=== PATIENT | male | born 1965 | race Caucasian/White ===

== ENCOUNTER 2020-12-24 12:18 | Emergency (ER) | payer OTHER ==
[2020-12-24 12:31] VITALS: BP 138/83; PULSE 117; TEMP 98.7; BMI 21.7
[2020-12-24] MEDS ORDERED: KETOROLAC TROMETHAMINE 30 MG/1 ML VIAL IVPUSH ONE (13:06)
[2020-12-24] MEDS ORDERED: KETOROLAC TROMETHAMINE 30 MG/1 ML VIAL ONE (13:16)
[2020-12-24 13:32] LABS: BASO % 0.9 % (0-2.0); EOS % 1.3 % (0-4.5); HEMATOCRIT 49.4 % (35.4-49); HEMOGLOBIN 17.2 GM/dL (11.7-16.9); MCH 34.8 pg (25.7-33.7); MCHC 34.9 g/dl (32.0-35.9); MEAN CELL VOLUME 99.7 fl (80-96); MEAN PLT VOLUME 7.6 fl (7.5-11.1); MONO % 9.7 % (3.8-10.2); NEUT % 67.1 % (42.8-82.8); PLATELET COUNT 299 K/MM3 (134-434); RBC 4.95 M/mm3 (4.00-5.60); RDW 13.2 % (11.9-15.9); WHITE BLOOD COUNT 7.8 K/mm3 (4.0-10.0)
[2020-12-24 13:53] LABS: POTASSIUM 4.7 mmol/L (3.5-5.1)
[2020-12-24 13:57] LABS: ALBUMIN 4.2 g/dl (3.4-5.0); BLOOD UREA NITROGEN 9.6 mg/dL (7-18); CALCIUM 9.6 mg/dL (8.5-10.1)
[2020-12-24 14:01] LABS: CREATININE 0.9 mg/dL (0.55-1.3)
[2020-12-24 14:02] LABS: TOT PROT 7.8 g/dl (6.4-8.2)
[2020-12-24 15:12] LABS: URINE APPEARANCE CLEAR; URINE BILIRUBIN NEGATIVE (NEGATIVE); URINE COLOR DK YELLOW; URINE GLUCOSE (UA) NEGATIVE (NEGATIVE); URINE KETONE TRACE (NEGATIVE); URINE LEUK ESTERASE NEGATIVE (NEGATIVE); URINE NITRITE NEGATIVE (NEGATIVE); URINE PROTEIN NEGATIVE (NEGATIVE)
[2020-12-24] MEDS ORDERED: SODIUM CHLORIDE 0.9% 500 ML INFUS.BAG IV ONE (15:50)
[2020-12-24] MEDS ORDERED: DICYCLOMINE HCL 10 MG/5 ML PO ONE (15:51)
[2020-12-24] MEDS ORDERED: DICYCLOMINE HCL 10 MG CAPSULE ONE (16:13)
== END 2020-12-24 17:34 | disposition home or self-care (01) ==
LOC: JER 12:18
PROC: 3E0333Z Introduction of Anti-inflammatory into Peripheral Vein, Percutaneous Approach (ICD-10-PCS; principal; 2020-12-24)
DX: R10.30 Lower abdominal pain, unspecified (principal)
CPT/HCPCS: 36415; 74176-TC; 80053; 81003; 82140; 83690; 85025; 93005; 93010; 99285-25

== ENCOUNTER 2023-06-07 15:08 | Inpatient (IN) | payer OTHER ==
[2023-06-07] MEDS ORDERED: SODIUM CHLORIDE 0.9% 500 ML INFUS.BAG IV ONE (16:01)
[2023-06-07] MEDS ORDERED: ACETAMINOPHEN 1000 MG/100 ML BAG IVPB ONE (16:01)
[2023-06-07] MEDS ORDERED: METOCLOPRAMIDE HCL INJECTION 10 MG/2 ML VIAL IVPUSH ONE (16:01)
[2023-06-07] MEDS ORDERED: METOCLOPRAMIDE HCL INJECTION 10 MG/2 ML VIAL IVPB ONE (16:04)
[2023-06-07] MEDS ORDERED: ACETAMINOPHEN INJECTION 100 ML IVPB ONE (16:13)
[2023-06-07] MEDS ORDERED: METOCLOPRAMIDE HCL INJECTION 10 MG/2 ML VIAL ONE (16:13)
[2023-06-07 16:57] LABS: BASO % 0.6 % (0-2.0); EOS % 1.2 % (0-4.5); HEMATOCRIT 45.5 % (35.4-49); HEMOGLOBIN 15.4 GM/dL (11.7-16.9); LYMPH % 15.7 % (8-40); MCHC 33.7 g/dl (32.0-35.9); MEAN CELL VOLUME 97.9 fl (80-96); MEAN PLT VOLUME 8.1 fl (7.5-11.1); NEUT % 73.5 % (42.8-82.8); PLATELET COUNT 318 10^3/uL (134-434); RBC 4.65 M/mm3 (4.00-5.60); WHITE BLOOD COUNT 9.6 K/mm3 (4.0-10.0)
[2023-06-07 17:12] LABS: POTASSIUM 4.2 mmol/L (3.5-5.1)
[2023-06-07 17:15] LABS: CALCIUM 9.3 mg/dL (8.5-10.1)
[2023-06-07 17:16] LABS: ALBUMIN 3.8 g/dl (3.4-5.0); BLOOD UREA NITROGEN 13.1 mg/dL (7-18)
[2023-06-07 17:19] LABS: CREATININE 0.8 mg/dL (0.55-1.3)
[2023-06-07 17:21] LABS: BILIRUBIN,TOTAL 0.5 mg/dL (0.2-1); TOT PROT 6.8 g/dl (6.4-8.2)
[2023-06-07] MEDS ORDERED: PANTOPRAZOLE 40 MG TABLET PO ONE ×2 (19:31→19:57)
[2023-06-07] MEDS ORDERED: DEXAMETHASONE SOD PHOSPHATE 10 MG/1 ML VIAL IVPUSH ONE (19:31)
[2023-06-07] MEDS ORDERED: DEXAMETHASONE SOD PHOSPHATE 10 MG/1 ML VIAL ONE (19:58)
[2023-06-07 20:47] LABS: INR 0.95 (0.83-1.09)
[2023-06-07 20:49] LABS: ACTIVATED PTT 31.8 SECONDS (25.2-36.5)
[2023-06-07] MEDS: NICOTINE 21 MG/24 HOURS TOPICAL PATCH TD SCH (22:37)
[2023-06-07] MEDS ORDERED: DOCUSATE SODIUM 100 MG CAPSULE (FP) PO PRN (23:05)
[2023-06-07] MEDS ORDERED: ACETAMINOPHEN 1000 MG/100 ML BAG IVPB PRN (23:09)
[2023-06-08 01:29] LABS: BASO % 0.2 % (0-2.0); EOS % 0.1 % (0-4.5); HEMATOCRIT 43.4 % (35.4-49); HEMOGLOBIN 15.1 GM/dL (11.7-16.9); LYMPH % 7.2 % (8-40); MCH 33.2 pg (25.7-33.7); MCHC 34.8 g/dl (32.0-35.9); MEAN CELL VOLUME 95.4 fl (80-96); MEAN PLT VOLUME 7.6 fl (7.5-11.1); MONO % 1.1 % (3.8-10.2); NEUT % 91.4 % (42.8-82.8); PLATELET COUNT 305 10^3/uL (134-434); RBC 4.55 M/mm3 (4.00-5.60); RDW 13.1 % (11.9-15.9); WHITE BLOOD COUNT 10.3 K/mm3 (4.0-10.0)
[2023-06-08 02:47] LABS: ANISOCYTOSIS 2+; MACROCYTOSIS 0; OVALOCYTE 2+; TEAR DROP CELLS 1+
[2023-06-08 08:04] LABS: POTASSIUM 4.4 mmol/L (3.5-5.1)
[2023-06-08 08:07] LABS: CALCIUM 9.2 mg/dL (8.5-10.1)
[2023-06-08] MEDS ORDERED: ALBUTEROL SO4 HFA INHALER IH PRN (08:07)
[2023-06-08 08:08] LABS: BLOOD UREA NITROGEN 15.4 mg/dL (7-18); MAGNESIUM 1.8 mg/dL (1.8-2.4)
[2023-06-08 08:11] LABS: CREATININE 0.8 mg/dL (0.55-1.3); PHOSPHOROUS 2.5 mg/dL (2.5-4.9)
[2023-06-08] MEDS: PANTOPRAZOLE 40 MG TABLET PO SCH (09:51)
[2023-06-08] MEDS: NICOTINE 21 MG/24 HOURS TOPICAL PATCH TD SCH (09:51)
[2023-06-08] MEDS: DEXAMETHASONE SOD PHOSPHATE 4 MG/1 ML VIAL IVPUSH SCH ×3 (09:51→22:21)
[2023-06-08] MEDS ORDERED: ACETAMINOPHEN 325 MG TABLET (FP) PO PRN (23:05)
[2023-06-09] MEDS: DEXAMETHASONE SOD PHOSPHATE 4 MG/1 ML VIAL IVPUSH SCH ×4 (04:00→21:29)
[2023-06-09] MEDS: PANTOPRAZOLE 40 MG TABLET PO SCH (09:04)
[2023-06-09] MEDS: NICOTINE 21 MG/24 HOURS TOPICAL PATCH TD SCH (09:04)
[2023-06-10] MEDS: DEXAMETHASONE SOD PHOSPHATE 4 MG/1 ML VIAL IVPUSH SCH ×4 (03:44→21:50)
[2023-06-10] MEDS: NICOTINE 21 MG/24 HOURS TOPICAL PATCH TD SCH (09:39)
[2023-06-10] MEDS: PANTOPRAZOLE 40 MG TABLET PO SCH (09:39)
[2023-06-10 19:12] VITALS: BMI 19.2
[2023-06-11] MEDS: DEXAMETHASONE SOD PHOSPHATE 4 MG/1 ML VIAL IVPUSH SCH ×2 (02:54→09:06)
[2023-06-11 06:00] VITALS: BP 105/65; TEMP 97.8
[2023-06-11] MEDS: NICOTINE 21 MG/24 HOURS TOPICAL PATCH TD SCH (09:06)
[2023-06-11] MEDS: PANTOPRAZOLE 40 MG TABLET PO SCH (09:06)
[2023-06-11 10:59] VITALS: PULSE 79; RESP 20
== END 2023-06-11 13:38 | disposition home or self-care (01) | DRG 41 ==
LOC: JER 15:08 → JERBED 20:17 → J4W 06-08 05:18
PROVIDERS: ADMIT Internal Medicine; ATTEND Family Medicine
DX: C79.31 Secondary malignant neoplasm of brain (principal); G93.5 Compression of brain; C34.91 Malignant neoplasm of unspecified part of right bronchus or lung; G93.6 Cerebral edema; J44.9 Chronic obstructive pulmonary disease, unspecified; F17.210 Nicotine dependence, cigarettes, uncomplicated; R51.9 Headache, unspecified
CPT/HCPCS: 36415; 70450-TC; 70553-TC; 71270-TC; 74178-TC; 80048; 80053; 83735; 84100; 85025; 85610; 85730; 86850; 86900; 86901; 93005; 93010; 99285-25; A9579; J1100; Q9967

== ENCOUNTER 2023-08-12 14:12 | Inpatient (IN) | payer OTHER ==
[2023-08-12] MEDS ORDERED: SODIUM CHLORIDE 0.9% 500 ML INFUS.BAG IV ONE (15:23)
[2023-08-12] MEDS ORDERED: levETIRAcetam 500 MG/5 ML INJECTION VIAL IVPB ONE ×2 (15:33→16:03)
[2023-08-12] MEDS ORDERED: PANTOPRAZOLE SODIUM 40 MG VIAL IVPUSH ONE (15:36)
[2023-08-12] MEDS ORDERED: ONDANSETRON 4 MG/2 ML VIAL IVPUSH ONE (15:36)
[2023-08-12] MEDS ORDERED: ONDANSETRON 4 MG/2 ML VIAL ONE (16:03)
[2023-08-12] MEDS ORDERED: PANTOPRAZOLE SODIUM 40 MG VIAL ONE (16:03)
[2023-08-12 16:07] LABS: VENOUS BASE EXCESS 5.1 mmol/L (-2-2); VENOUS O2 SATURATION 63.7 % (70-80); VENOUS PCO2 48.6 mmHg (38-52); VENOUS PH 7.421 (7.310-7.410)
[2023-08-12 16:09] LABS: INR 0.97 (0.83-1.09); PROTHROMBIN TIME (PATIENT) 11.3 SEC (9.7-13.0)
[2023-08-12 16:22] LABS: CHLORIDE 98 mmol/L (98-107); SODIUM 137 mmol/L (136-145)
[2023-08-12 16:24] LABS: ALBUMIN 3.5 g/dl (3.4-5.0); ANION GAP 9 MMOL/L (8-16); BLOOD UREA NITROGEN 27.6 mg/dL (7-18); CALCIUM 9.8 mg/dL (8.5-10.1); CO2 30 mmol/L (21-32); GLUCOSE,RANDOM 144 mg/dL (74-106)
[2023-08-12 16:28] LABS: CREATININE 0.7 mg/dL (0.55-1.3); SGOT/AST 11 U/L (15-37); SGPT/ALT 41 U/L (13-61)
[2023-08-12 16:30] LABS: BILIRUBIN,TOTAL 1.1 mg/dL (0.2-1); TOT PROT 7.1 g/dl (6.4-8.2)
[2023-08-12 16:31] LABS: ALK PHOS 113 U/L (45-117)
[2023-08-12 16:34] LABS: BASO % 0.1 % (0-2.0); EOS % 0.1 % (0-4.5); HEMATOCRIT 45.3 % (35.4-49); HEMOGLOBIN 15.6 GM/dL (11.7-16.9); LYMPH % 8.5 % (8-40); MCH 32.1 pg (25.7-33.7); MCHC 34.5 g/dl (32.0-35.9); MEAN CELL VOLUME 93.2 fl (80-96); MEAN PLT VOLUME 6.4 fl (7.5-11.1); MONO % 5.9 % (3.8-10.2); NEUT % 85.4 % (42.8-82.8); PLATELET COUNT 529 10^3/uL (134-434); RBC 4.86 M/mm3 (4.00-5.60); RDW 14.2 % (11.9-15.9); WHITE BLOOD COUNT 19.7 K/mm3 (4.0-10.0)
[2023-08-12] MEDS ORDERED: MANNITOL 25% 12.5 GM/50 ML VIAL IVPB ONE (18:30)
[2023-08-12] MEDS ORDERED: MANNITOL IVPB ONE (19:00)
[2023-08-12] MEDS: PANTOPRAZOLE SODIUM 80 MG in SODIUM CHLORIDE 100 ML IVPB SCH (19:41)
[2023-08-12 20:06] LABS: URINE APPEARANCE CLEAR; URINE BILIRUBIN NEGATIVE (NEGATIVE); URINE COLOR YELLOW; URINE GLUCOSE (UA) NEGATIVE (NEGATIVE); URINE KETONE NEGATIVE (NEGATIVE); URINE LEUK ESTERASE NEGATIVE (NEGATIVE); URINE NITRITE NEGATIVE (NEGATIVE); URINE PROTEIN NEGATIVE (NEGATIVE); URINE UROBILINOGEN 0.2 mg/dL (0.2-1.0)
[2023-08-12] MEDS ORDERED: ONDANSETRON 4 MG/2 ML VIAL IVPUSH PRN (20:30)
[2023-08-12 21:16] LABS: BASO % 0.2 % (0-2.0); EOS % 0.2 % (0-4.5); HEMATOCRIT 40.3 % (35.4-49); HEMOGLOBIN 14.3 GM/dL (11.7-16.9); LYMPH % 11.3 % (8-40); MCH 32.6 pg (25.7-33.7); MCHC 35.5 g/dl (32.0-35.9); MEAN CELL VOLUME 91.8 fl (80-96); MEAN PLT VOLUME 6.2 fl (7.5-11.1); MONO % 6.2 % (3.8-10.2); NEUT % 82.1 % (42.8-82.8); PLATELET COUNT 483 10^3/uL (134-434); RBC 4.39 M/mm3 (4.00-5.60); RDW 14.7 % (11.9-15.9); WHITE BLOOD COUNT 16.9 K/mm3 (4.0-10.0)
[2023-08-12 21:36] LABS: CALCIUM 8.9 mg/dL (8.5-10.1)
[2023-08-12 21:40] LABS: PHOSPHOROUS 3.6 mg/dL (2.5-4.9)
[2023-08-12] MEDS: SODIUM CHLORIDE 1,000 ML IV SCH (21:48)
[2023-08-12] MEDS: DEXAMETHASONE SOD PHOSPHATE 4 MG/1 ML VIAL IVPUSH SCH (21:49)
[2023-08-12] MEDS: levETIRAcetam 500 MG/5 ML INJECTION VIAL IVPB SCH (21:49)
[2023-08-12 21:52] LABS: CALCIUM 9.3 mg/dL (8.5-10.1)
[2023-08-12 21:53] LABS: BLOOD UREA NITROGEN 23.4 mg/dL (7-18); MAGNESIUM 1.9 mg/dL (1.8-2.4)
[2023-08-12 21:57] LABS: CREATININE 0.5 mg/dL (0.55-1.3)
[2023-08-12] MEDS: MUPIROCIN 2% TOPICAL OINTMENT FOR DECOLONIZATION NS SCH (21:59)
[2023-08-12] MEDS ORDERED: CHLORHEXIDINE GLUCONATE 4% CLEANSER FOR DECOLONIZATION TP SCH (22:00)
[2023-08-12] MEDS ORDERED: ALBUTEROL SO4 HFA INHALER IH PRN (22:02)
[2023-08-12] MEDS ORDERED: ACETAMINOPHEN 1000 MG/100 ML BAG IVPB PRN (22:12)
[2023-08-13] MEDS ORDERED: LIDOCAINE HCL 2% JELLY (30 ML/TUBE) TP PRN (01:44)
[2023-08-13] MEDS ORDERED: LIDOCAINE HCL 2% JELLY 6 ML TP PRN (01:59)
[2023-08-13] MEDS: DEXAMETHASONE SOD PHOSPHATE 4 MG/1 ML VIAL IVPUSH SCH ×4 (03:28→21:22)
[2023-08-13] MEDS: PANTOPRAZOLE SODIUM 80 MG in SODIUM CHLORIDE 100 ML IVPB SCH (05:00)
[2023-08-13] MEDS: SODIUM CHLORIDE 1,000 ML IV SCH ×3 (06:16→17:01)
[2023-08-13 06:39] LABS: BASO % 0.2 % (0-2.0); EOS % 0.1 % (0-4.5); HEMATOCRIT 39.1 % (35.4-49); HEMOGLOBIN 13.2 GM/dL (11.7-16.9); LYMPH % 6.2 % (8-40); MCH 31.6 pg (25.7-33.7); MCHC 33.8 g/dl (32.0-35.9); MEAN CELL VOLUME 93.4 fl (80-96); MEAN PLT VOLUME 6.3 fl (7.5-11.1); MONO % 2.6 % (3.8-10.2); NEUT % 90.9 % (42.8-82.8); PLATELET COUNT 456 10^3/uL (134-434); RBC 4.19 M/mm3 (4.00-5.60); RDW 14.6 % (11.9-15.9); WHITE BLOOD COUNT 17.9 K/mm3 (4.0-10.0)
[2023-08-13 07:00] LABS: POTASSIUM 4.3 mmol/L (3.5-5.1)
[2023-08-13 07:03] LABS: CALCIUM 8.7 mg/dL (8.5-10.1)
[2023-08-13 07:04] LABS: BLOOD UREA NITROGEN 21.7 mg/dL (7-18)
[2023-08-13 07:07] LABS: CREATININE 0.6 mg/dL (0.55-1.3); PHOSPHOROUS 3.7 mg/dL (2.5-4.9)
[2023-08-13 07:08] LABS: BILIRUBIN,TOTAL 1.2 mg/dL (0.2-1); TOT PROT 5.8 g/dl (6.4-8.2)
[2023-08-13] MEDS: THIAMINE HCL 100 MG TABLET (FP) PO SCH (09:55)
[2023-08-13] MEDS: FOLIC ACID 1 MG TABLET (FP) PO SCH (09:55)
[2023-08-13] MEDS: NICOTINE 21 MG/24 HOURS TOPICAL PATCH TD SCH (09:55)
[2023-08-13] MEDS: levETIRAcetam 500 MG/5 ML INJECTION VIAL IVPB SCH ×2 (09:55→21:22)
[2023-08-13] MEDS: MUPIROCIN 2% TOPICAL OINTMENT FOR DECOLONIZATION NS SCH (09:56)
[2023-08-13] MEDS ORDERED: ENOXAPARIN NA (PORCINE) 40 MG/0.4 ML DISP.SYRIN SQ SCH (10:00)
[2023-08-13] MEDS: SIMETHICONE 80 MG TAB.CHEW (FP) PO SCH ×5 (11:32→21:30)
[2023-08-13] MEDS: PANTOPRAZOLE SODIUM 40 MG VIAL IVPUSH SCH ×2 (11:33→21:22)
[2023-08-13] MEDS ORDERED: MANNITOL 25% 12.5 GM/50 ML VIAL IVPB ONE (12:05)
[2023-08-13] MEDS: MANNITOL IVPB ONE ×2 (14:24→16:12)
[2023-08-14] MEDS: DEXAMETHASONE SOD PHOSPHATE 4 MG/1 ML VIAL IVPUSH SCH ×4 (02:59→22:04)
[2023-08-14 07:00] LABS: HEMOGLOBIN 13.2 GM/dL (11.7-16.9); MCH 32.4 pg (25.7-33.7); MCHC 34.9 g/dl (32.0-35.9); MEAN CELL VOLUME 92.9 fl (80-96); MEAN PLT VOLUME 6.4 fl (7.5-11.1); PLATELET COUNT 451 10^3/uL (134-434); RBC 4.09 M/mm3 (4.00-5.60); RDW 14.2 % (11.9-15.9); WHITE BLOOD COUNT 14.7 K/mm3 (4.0-10.0)
[2023-08-14 08:05] LABS: POTASSIUM 4.2 mmol/L (3.5-5.1)
[2023-08-14 08:07] LABS: CALCIUM 9.1 mg/dL (8.5-10.1)
[2023-08-14 08:08] LABS: BLOOD UREA NITROGEN 17.2 mg/dL (7-18); MAGNESIUM 1.8 mg/dL (1.8-2.4)
[2023-08-14 08:11] LABS: CREATININE 0.5 mg/dL (0.55-1.3); PHOSPHOROUS 3.1 mg/dL (2.5-4.9)
[2023-08-14 08:12] LABS: BILIRUBIN,TOTAL 1.1 mg/dL (0.2-1); TOT PROT 5.7 g/dl (6.4-8.2)
[2023-08-14 09:10] LABS: ALBUMIN 2.9 g/dl (3.4-5.0)
[2023-08-14] MEDS: levETIRAcetam 500 MG/5 ML INJECTION VIAL IVPB SCH ×2 (09:12→21:25)
[2023-08-14] MEDS: NICOTINE 21 MG/24 HOURS TOPICAL PATCH TD SCH (09:12)
[2023-08-14] MEDS: PANTOPRAZOLE SODIUM 40 MG VIAL IVPUSH SCH (09:13)
[2023-08-14] MEDS: FOLIC ACID 1 MG TABLET (FP) PO SCH ×2 (09:13→09:28)
[2023-08-14] MEDS: SIMETHICONE 80 MG TAB.CHEW (FP) PO SCH ×6 (09:13→21:40)
[2023-08-14] MEDS: THIAMINE HCL 100 MG TABLET (FP) PO SCH ×2 (09:13→09:28)
[2023-08-14] MEDS ORDERED: PANTOPRAZOLE 40 MG TABLET PO SCH (10:00)
[2023-08-14] MEDS: ACETAMINOPHEN 1000 MG/100 ML BAG IVPB PRN ×2 (10:38→16:44)
[2023-08-14 14:25] VITALS: BMI 17.2
[2023-08-14] MEDS ORDERED: LIDOCAINE HCL 2% JELLY 6 ML TP PRN (21:18)
[2023-08-14] MEDS ORDERED: ALBUTEROL SO4 HFA INHALER IH PRN (21:18)
[2023-08-14] MEDS ORDERED: ACETAMINOPHEN 1000 MG/100 ML BAG IVPB PRN (21:18)
[2023-08-14] MEDS ORDERED: DEXAMETHASONE SOD PHOSPHATE 10 MG/1 ML VIAL ONE (22:01)
[2023-08-15] MEDS: DEXAMETHASONE SOD PHOSPHATE 4 MG/1 ML VIAL IVPUSH SCH ×5 (02:27→20:27)
[2023-08-15] MEDS ORDERED: MANNITOL 25% 12.5 GM/50 ML VIAL IVPB ONE (07:47)
[2023-08-15] MEDS ORDERED: HALOPERIDOL DECANOATE 100 MG/ML IM ONE (07:57)
[2023-08-15] MEDS ORDERED: SODIUM CHLORIDE 1,000 ML IV STA (08:12)
[2023-08-15] MEDS ORDERED: METOPROLOL TARTRATE 5 MG/5 ML VIAL IVPUSH PRN (08:45)
[2023-08-15] MEDS: DEXMEDETOMIDINE PREMIX 400 MCG/100 ML BAG IVPB SCH (08:55)
[2023-08-15] MEDS ORDERED: DEXAMETHASONE SOD PHOSPHATE 10 MG/1 ML VIAL IVPUSH ONE (09:00)
[2023-08-15] MEDS: FOLIC ACID 1 MG TABLET (FP) PO SCH (09:14)
[2023-08-15] MEDS: THIAMINE HCL 100 MG TABLET (FP) PO SCH (09:14)
[2023-08-15] MEDS: SIMETHICONE 80 MG TAB.CHEW (FP) PO SCH ×4 (09:14→21:03)
[2023-08-15] MEDS ORDERED: MANNITOL IVPB ONE ×2 (09:30)
[2023-08-15] MEDS: levETIRAcetam 500 MG/5 ML INJECTION VIAL IVPB SCH ×2 (09:36→21:18)
[2023-08-15] MEDS: PANTOPRAZOLE SODIUM 40 MG VIAL IVPUSH SCH (09:36)
[2023-08-15] MEDS: SODIUM CHLORIDE 1,000 ML IV SCH (09:48)
[2023-08-15] MEDS ORDERED: NICOTINE 21 MG/24 HOURS TOPICAL PATCH TD SCH (10:00)
[2023-08-15] MEDS ORDERED: PANTOPRAZOLE SODIUM 40 MG VIAL IVPUSH SCH (10:00)
[2023-08-15] MEDS: ENOXAPARIN NA (PORCINE) 40 MG/0.4 ML DISP.SYRIN SQ SCH (12:35)
[2023-08-15] MEDS: MANNITOL IVPB SCH ×2 (13:08→20:20)
[2023-08-15] MEDS ORDERED: MANNITOL 25% 12.5 GM/50 ML VIAL IVPB SCH (14:00)
[2023-08-16] MEDS: SODIUM CHLORIDE 1,000 ML IV SCH ×3 (00:57→19:41)
[2023-08-16] MEDS: MANNITOL IVPB SCH ×4 (02:08→21:44)
[2023-08-16] MEDS: DEXAMETHASONE SOD PHOSPHATE 4 MG/1 ML VIAL IVPUSH SCH ×4 (02:08→21:25)
[2023-08-16 07:45] LABS: HEMATOCRIT 33.9 % (35.4-49); HEMOGLOBIN 11.6 GM/dL (11.7-16.9); MCH 31.6 pg (25.7-33.7); MCHC 34.2 g/dl (32.0-35.9); MEAN CELL VOLUME 92.2 fl (80-96); MEAN PLT VOLUME 6.6 fl (7.5-11.1); PLATELET COUNT 408 10^3/uL (134-434); RBC 3.67 M/mm3 (4.00-5.60); RDW 14.1 % (11.9-15.9); WHITE BLOOD COUNT 13.8 K/mm3 (4.0-10.0)
[2023-08-16 08:05] LABS: POTASSIUM 3.8 mmol/L (3.5-5.1)
[2023-08-16 08:08] LABS: BLOOD UREA NITROGEN 20.4 mg/dL (7-18); CALCIUM 8.1 mg/dL (8.5-10.1); MAGNESIUM 1.7 mg/dL (1.8-2.4)
[2023-08-16 08:10] LABS: CREATININE 0.4 mg/dL (0.55-1.3)
[2023-08-16 08:12] LABS: PHOSPHOROUS 3.6 mg/dL (2.5-4.9)
[2023-08-16] MEDS ORDERED: MAGNESIUM SULF 50% (8.12 MEQ/2 ML-1 GM VIAL) IVPB ONE (09:12)
[2023-08-16] MEDS: levETIRAcetam 500 MG/5 ML INJECTION VIAL IVPB SCH ×2 (09:25→21:25)
[2023-08-16] MEDS: THIAMINE HCL 100 MG TABLET (FP) PO SCH (09:25)
[2023-08-16] MEDS: ENOXAPARIN NA (PORCINE) 40 MG/0.4 ML DISP.SYRIN SQ SCH (09:25)
[2023-08-16] MEDS: FOLIC ACID 1 MG TABLET (FP) PO SCH (09:25)
[2023-08-16] MEDS: PANTOPRAZOLE SODIUM 40 MG VIAL IVPUSH SCH (09:26)
[2023-08-16] MEDS: DEXMEDETOMIDINE PREMIX 400 MCG/100 ML BAG IVPB SCH (09:26)
[2023-08-16] MEDS: SIMETHICONE 80 MG TAB.CHEW (FP) PO SCH ×4 (09:26→21:28)
[2023-08-17] MEDS: DEXAMETHASONE SOD PHOSPHATE 4 MG/1 ML VIAL IVPUSH SCH ×4 (02:10→21:47)
[2023-08-17] MEDS: MANNITOL IVPB SCH ×3 (05:07→21:46)
[2023-08-17] MEDS ORDERED: MANNITOL IVPB SCH (06:00)
[2023-08-17] MEDS: SODIUM CHLORIDE 1,000 ML IV SCH ×2 (06:25→09:35)
[2023-08-17 07:20] LABS: HEMATOCRIT 32.7 % (35.4-49); HEMOGLOBIN 11.5 GM/dL (11.7-16.9); MCH 32.1 pg (25.7-33.7); MEAN CELL VOLUME 91.8 fl (80-96); MEAN PLT VOLUME 6.8 fl (7.5-11.1); PLATELET COUNT 365 10^3/uL (134-434); RBC 3.57 M/mm3 (4.00-5.60); RDW 14.4 % (11.9-15.9); WHITE BLOOD COUNT 14.1 K/mm3 (4.0-10.0)
[2023-08-17 07:32] LABS: POTASSIUM 3.8 mmol/L (3.5-5.1)
[2023-08-17 07:37] LABS: ALBUMIN 2.5 g/dl (3.4-5.0); BLOOD UREA NITROGEN 15.4 mg/dL (7-18); MAGNESIUM 1.7 mg/dL (1.8-2.4)
[2023-08-17 07:40] LABS: BILIRUBIN,TOTAL 0.8 mg/dL (0.2-1); CREATININE 0.3 mg/dL (0.55-1.3); PHOSPHOROUS 2.8 mg/dL (2.5-4.9)
[2023-08-17] MEDS ORDERED: MAGNESIUM SULF 50% (8.12 MEQ/2 ML-1 GM VIAL) IVPB ONE (09:00)
[2023-08-17] MEDS: FOLIC ACID 1 MG TABLET (FP) PO SCH (09:17)
[2023-08-17] MEDS: THIAMINE HCL 100 MG TABLET (FP) PO SCH (09:17)
[2023-08-17] MEDS: SIMETHICONE 80 MG TAB.CHEW (FP) PO SCH ×4 (09:17→21:47)
[2023-08-17] MEDS: levETIRAcetam 500 MG/5 ML INJECTION VIAL IVPB SCH ×2 (09:17→21:46)
[2023-08-17] MEDS: ENOXAPARIN NA (PORCINE) 40 MG/0.4 ML DISP.SYRIN SQ SCH (09:17)
[2023-08-17] MEDS: PANTOPRAZOLE SODIUM 40 MG VIAL IVPUSH SCH (09:17)
[2023-08-17] MEDS: DEXMEDETOMIDINE PREMIX 400 MCG/100 ML BAG IVPB SCH (11:51)
[2023-08-18] MEDS: DEXAMETHASONE SOD PHOSPHATE 4 MG/1 ML VIAL IVPUSH SCH ×4 (03:29→20:45)
[2023-08-18] MEDS: SODIUM CHLORIDE 1,000 ML IV SCH ×2 (03:54→13:36)
[2023-08-18 07:48] LABS: HEMATOCRIT 34.2 % (35.4-49); HEMOGLOBIN 11.9 GM/dL (11.7-16.9); MCH 31.8 pg (25.7-33.7); MCHC 34.7 g/dl (32.0-35.9); MEAN CELL VOLUME 91.4 fl (80-96); MEAN PLT VOLUME 6.7 fl (7.5-11.1); PLATELET COUNT 381 10^3/uL (134-434); RBC 3.74 M/mm3 (4.00-5.60); RDW 14.5 % (11.9-15.9); WHITE BLOOD COUNT 13.2 K/mm3 (4.0-10.0)
[2023-08-18 07:54] LABS: POTASSIUM 3.8 mmol/L (3.5-5.1)
[2023-08-18 07:58] LABS: ALBUMIN 2.4 g/dl (3.4-5.0); BLOOD UREA NITROGEN 12.9 mg/dL (7-18)
[2023-08-18] MEDS ORDERED: MANNITOL IVPB SCH (08:00)
[2023-08-18 08:01] LABS: CREATININE 0.3 mg/dL (0.55-1.3)
[2023-08-18 08:03] LABS: BILIRUBIN,TOTAL 0.7 mg/dL (0.2-1)
[2023-08-18] MEDS: levETIRAcetam 500 MG/5 ML INJECTION VIAL IVPB SCH ×2 (09:25→21:39)
[2023-08-18] MEDS: MANNITOL IVPB SCH ×2 (09:26→21:40)
[2023-08-18] MEDS: PANTOPRAZOLE SODIUM 40 MG VIAL IVPUSH SCH (09:26)
[2023-08-18] MEDS: SIMETHICONE 80 MG TAB.CHEW (FP) PO SCH ×4 (09:26→21:39)
[2023-08-18] MEDS: ENOXAPARIN NA (PORCINE) 40 MG/0.4 ML DISP.SYRIN SQ SCH (09:26)
[2023-08-18] MEDS: THIAMINE HCL 100 MG TABLET (FP) PO SCH (09:26)
[2023-08-18] MEDS: FOLIC ACID 1 MG TABLET (FP) PO SCH (09:26)
[2023-08-18] MEDS: DEXMEDETOMIDINE PREMIX 400 MCG/100 ML BAG IVPB SCH (09:27)
[2023-08-19] MEDS: DEXAMETHASONE SOD PHOSPHATE 4 MG/1 ML VIAL IVPUSH SCH ×4 (02:40→21:14)
[2023-08-19] MEDS: SODIUM CHLORIDE 1,000 ML IV SCH ×3 (02:41→21:13)
[2023-08-19 08:01] LABS: HEMATOCRIT 34.9 % (35.4-49); HEMOGLOBIN 12.5 GM/dL (11.7-16.9); MCH 32.8 pg (25.7-33.7); MCHC 35.9 g/dl (32.0-35.9); MEAN CELL VOLUME 91.4 fl (80-96); PLATELET COUNT 390 10^3/uL (134-434); RBC 3.82 M/mm3 (4.00-5.60); RDW 14.5 % (11.9-15.9); WHITE BLOOD COUNT 13.4 K/mm3 (4.0-10.0)
[2023-08-19 08:17] LABS: POTASSIUM 3.8 mmol/L (3.5-5.1)
[2023-08-19 08:23] LABS: CALCIUM 8.3 mg/dL (8.5-10.1)
[2023-08-19 08:24] LABS: ALBUMIN 2.6 g/dl (3.4-5.0); MAGNESIUM 1.5 mg/dL (1.8-2.4)
[2023-08-19 08:26] LABS: TOT PROT 5.2 g/dl (6.4-8.2)
[2023-08-19 08:27] LABS: BILIRUBIN,TOTAL 0.8 mg/dL (0.2-1); CREATININE 0.3 mg/dL (0.55-1.3); PHOSPHOROUS 2.8 mg/dL (2.5-4.9)
[2023-08-19] MEDS ORDERED: MAGNESIUM SULF 50% (8.12 MEQ/2 ML-1 GM VIAL) IVPB ONE (08:30)
[2023-08-19] MEDS: levETIRAcetam 500 MG/5 ML INJECTION VIAL IVPB SCH ×2 (09:22→21:46)
[2023-08-19] MEDS: PANTOPRAZOLE SODIUM 40 MG VIAL IVPUSH SCH (09:22)
[2023-08-19] MEDS: SIMETHICONE 80 MG TAB.CHEW (FP) PO SCH ×4 (09:24→21:46)
[2023-08-19] MEDS: THIAMINE HCL 100 MG TABLET (FP) PO SCH (09:24)
[2023-08-19] MEDS: ENOXAPARIN NA (PORCINE) 40 MG/0.4 ML DISP.SYRIN SQ SCH (09:24)
[2023-08-19] MEDS: FOLIC ACID 1 MG TABLET (FP) PO SCH (09:25)
[2023-08-19] MEDS: DEXMEDETOMIDINE PREMIX 400 MCG/100 ML BAG IVPB SCH (09:25)
[2023-08-19] MEDS ORDERED: MANNITOL IVPB SCH ×2 (10:00)
[2023-08-19 13:36] LABS: CREATININE, URINE RANDOM < 13.0 mg/dL (30-150)
[2023-08-20] MEDS: DEXAMETHASONE SOD PHOSPHATE 4 MG/1 ML VIAL IVPUSH SCH ×4 (03:29→21:38)
[2023-08-20 07:40] LABS: HEMATOCRIT 36.8 % (35.4-49); HEMOGLOBIN 12.8 GM/dL (11.7-16.9); MCH 32.2 pg (25.7-33.7); MCHC 34.9 g/dl (32.0-35.9); MEAN CELL VOLUME 92.1 fl (80-96); MEAN PLT VOLUME 7.1 fl (7.5-11.1); PLATELET COUNT 398 10^3/uL (134-434); RBC 3.99 M/mm3 (4.00-5.60); RDW 14.3 % (11.9-15.9); WHITE BLOOD COUNT 15.4 K/mm3 (4.0-10.0)
[2023-08-20 08:04] LABS: BLOOD UREA NITROGEN 13.3 mg/dL (7-18); PHOSPHOROUS 2.8 mg/dL (2.5-4.9)
[2023-08-20 08:05] LABS: ALBUMIN 2.6 g/dl (3.4-5.0); BILIRUBIN,TOTAL 0.6 mg/dL (0.2-1); CALCIUM 8.6 mg/dL (8.5-10.1); TOT PROT 5.2 g/dl (6.4-8.2)
[2023-08-20 08:06] LABS: MAGNESIUM 1.7 mg/dL (1.8-2.4)
[2023-08-20 08:07] LABS: CREATININE 0.4 mg/dL (0.55-1.3)
[2023-08-20] MEDS: PANTOPRAZOLE SODIUM 40 MG VIAL IVPUSH SCH (09:53)
[2023-08-20] MEDS: THIAMINE HCL 100 MG TABLET (FP) PO SCH (09:54)
[2023-08-20] MEDS: levETIRAcetam 500 MG/5 ML INJECTION VIAL IVPB SCH ×2 (09:54→21:37)
[2023-08-20] MEDS: SIMETHICONE 80 MG TAB.CHEW (FP) PO SCH ×4 (09:54→21:38)
[2023-08-20] MEDS: FOLIC ACID 1 MG TABLET (FP) PO SCH (09:54)
[2023-08-20] MEDS: ENOXAPARIN NA (PORCINE) 40 MG/0.4 ML DISP.SYRIN SQ SCH (09:59)
[2023-08-20] MEDS: DEXMEDETOMIDINE PREMIX 400 MCG/100 ML BAG IVPB SCH (14:56)
[2023-08-20] MEDS: SODIUM CHLORIDE 1,000 ML IV SCH ×2 (15:12→16:34)
[2023-08-20] MEDS ORDERED: ALBUTEROL SO4 HFA INHALER IH PRN (15:21)
[2023-08-20] MEDS ORDERED: LIDOCAINE HCL 2% JELLY 6 ML TP PRN (15:21)
[2023-08-21] MEDS: DEXAMETHASONE SOD PHOSPHATE 4 MG/1 ML VIAL IVPUSH SCH ×4 (03:27→23:30)
[2023-08-21] MEDS: SODIUM CHLORIDE 1,000 ML IV SCH ×2 (03:29→16:06)
[2023-08-21] MEDS: THIAMINE HCL 100 MG TABLET (FP) PO SCH (09:24)
[2023-08-21] MEDS: SIMETHICONE 80 MG TAB.CHEW (FP) PO SCH ×4 (09:24→23:30)
[2023-08-21] MEDS: levETIRAcetam 500 MG/5 ML INJECTION VIAL IVPB SCH ×2 (09:24→23:29)
[2023-08-21] MEDS: FOLIC ACID 1 MG TABLET (FP) PO SCH (09:24)
[2023-08-21] MEDS: PANTOPRAZOLE SODIUM 40 MG VIAL IVPUSH SCH (09:24)
[2023-08-21] MEDS: ENOXAPARIN NA (PORCINE) 40 MG/0.4 ML DISP.SYRIN SQ SCH (09:44)
[2023-08-21] MEDS: AMINO ACIDS 4.25%/D5W 1,000 ML IV SCH (17:27)
[2023-08-22] MEDS: DEXAMETHASONE SOD PHOSPHATE 4 MG/1 ML VIAL IVPUSH SCH ×3 (03:50→14:35)
[2023-08-22] MEDS: levETIRAcetam 500 MG/5 ML INJECTION VIAL IVPB SCH (09:26)
[2023-08-22] MEDS: ENOXAPARIN NA (PORCINE) 40 MG/0.4 ML DISP.SYRIN SQ SCH (09:28)
[2023-08-22] MEDS: PANTOPRAZOLE SODIUM 40 MG VIAL IVPUSH SCH (09:33)
[2023-08-22] MEDS: SIMETHICONE 80 MG TAB.CHEW (FP) PO SCH ×7 (09:34→22:22)
[2023-08-22] MEDS: FOLIC ACID 1 MG TABLET (FP) PO SCH (09:34)
[2023-08-22] MEDS: THIAMINE HCL 100 MG TABLET (FP) PO SCH (09:34)
[2023-08-22 10:58] LABS: POTASSIUM 3.5 mmol/L (3.5-5.1)
[2023-08-22 11:00] LABS: CALCIUM 8.3 mg/dL (8.5-10.1)
[2023-08-22 11:01] LABS: ALBUMIN 2.9 g/dl (3.4-5.0); BLOOD UREA NITROGEN 16.4 mg/dL (7-18)
[2023-08-22 11:04] LABS: CREATININE 0.4 mg/dL (0.55-1.3)
[2023-08-22 11:05] LABS: BILIRUBIN,TOTAL 1.1 mg/dL (0.2-1); TOT PROT 5.7 g/dl (6.4-8.2)
[2023-08-22] MEDS: traMADol HCL 50 MG TABLET PO PRN (14:34)
[2023-08-22] MEDS: SODIUM CHLORIDE 1,000 ML IV SCH (17:22)
[2023-08-22] MEDS: AMINO ACIDS 4.25%/D5W 1,000 ML IV SCH (17:23)
[2023-08-22] MEDS ORDERED: ACETAMINOPHEN 1000 MG/100 ML BAG IVPB PRN (20:53)
[2023-08-22] MEDS ORDERED: DEXAMETHASONE SOD PHOSPHATE 10 MG/1 ML VIAL IVPUSH ONE (22:00)
[2023-08-22] MEDS ORDERED: levETIRAcetam 500 MG/5 ML INJECTION VIAL IVPB ONE (22:00)
[2023-08-23] MEDS: FOLIC ACID 1 MG TABLET (FP) PO SCH (09:09)
[2023-08-23] MEDS: THIAMINE HCL 100 MG TABLET (FP) PO SCH (09:09)
[2023-08-23] MEDS: DEXAMETHASONE 4 MG TABLET (FP) PO SCH ×2 (09:09→13:34)
[2023-08-23] MEDS: SIMETHICONE 80 MG TAB.CHEW (FP) PO SCH ×5 (09:09→21:14)
[2023-08-23] MEDS: PANTOPRAZOLE 40 MG TABLET PO SCH (09:10)
[2023-08-23] MEDS: ENOXAPARIN NA (PORCINE) 40 MG/0.4 ML DISP.SYRIN SQ SCH (09:10)
[2023-08-23] MEDS: levETIRAcetam 500 MG TABLET (FP) PO SCH ×2 (09:10→21:19)
[2023-08-23 10:22] LABS: HEMATOCRIT 38.9 % (35.4-49); HEMOGLOBIN 13.5 GM/dL (11.7-16.9); MCH 31.3 pg (25.7-33.7); MCHC 34.7 g/dl (32.0-35.9); MEAN CELL VOLUME 90.1 fl (80-96); MEAN PLT VOLUME 6.8 fl (7.5-11.1); PLATELET COUNT 363 10^3/uL (134-434); RBC 4.32 M/mm3 (4.00-5.60); RDW 14.3 % (11.9-15.9); WHITE BLOOD COUNT 23.8 K/mm3 (4.0-10.0)
[2023-08-23 10:48] LABS: POTASSIUM 3.4 mmol/L (3.5-5.1)
[2023-08-23 10:51] LABS: CALCIUM 8.8 mg/dL (8.5-10.1)
[2023-08-23 10:52] LABS: ALBUMIN 2.9 g/dl (3.4-5.0); BLOOD UREA NITROGEN 17.4 mg/dL (7-18); MAGNESIUM 1.7 mg/dL (1.8-2.4)
[2023-08-23 10:54] LABS: CREATININE 0.3 mg/dL (0.55-1.3)
[2023-08-23 10:56] LABS: TOT PROT 5.5 g/dl (6.4-8.2)
[2023-08-23 10:57] LABS: BILIRUBIN,TOTAL 0.9 mg/dL (0.2-1)
[2023-08-23] MEDS: AMINO ACIDS 4.25%/D5W 1,000 ML IV SCH (15:54)
[2023-08-23] MEDS: DRONABINOL 5 MG CAPSULE PO SCH (16:01)
[2023-08-23] MEDS: levETIRAcetam 500 MG/5 ML INJECTION VIAL IVPB SCH (21:18)
[2023-08-23] MEDS: DEXAMETHASONE SOD PHOSPHATE 10 MG/1 ML VIAL IVPUSH SCH (21:18)
[2023-08-24] MEDS: DEXAMETHASONE SOD PHOSPHATE 10 MG/1 ML VIAL IVPUSH SCH ×4 (04:00→22:39)
[2023-08-24] MEDS: AMINO ACIDS 4.25%/D5W 1,000 ML IV SCH ×2 (04:25→15:50)
[2023-08-24] MEDS: FOLIC ACID 1 MG TABLET (FP) PO SCH (09:11)
[2023-08-24] MEDS: PANTOPRAZOLE 40 MG TABLET PO SCH (09:11)
[2023-08-24] MEDS: THIAMINE HCL 100 MG TABLET (FP) PO SCH (09:11)
[2023-08-24] MEDS: levETIRAcetam 500 MG TABLET (FP) PO SCH (09:11)
[2023-08-24] MEDS: SIMETHICONE 80 MG TAB.CHEW (FP) PO SCH ×4 (09:11→22:39)
[2023-08-24] MEDS: levETIRAcetam 500 MG/5 ML INJECTION VIAL IVPB SCH ×2 (09:18→22:39)
[2023-08-24] MEDS: ENOXAPARIN NA (PORCINE) 40 MG/0.4 ML DISP.SYRIN SQ SCH (09:21)
[2023-08-24] MEDS: DRONABINOL 5 MG CAPSULE PO SCH (10:48)
[2023-08-25] MEDS: AMINO ACIDS 4.25%/D5W 1,000 ML IV SCH ×2 (03:54→15:07)
[2023-08-25] MEDS: DEXAMETHASONE SOD PHOSPHATE 10 MG/1 ML VIAL IVPUSH SCH ×4 (03:54→22:02)
[2023-08-25] MEDS: levETIRAcetam 500 MG/5 ML INJECTION VIAL IVPB SCH ×2 (09:37→22:02)
[2023-08-25] MEDS: PANTOPRAZOLE 40 MG TABLET PO SCH (09:50)
[2023-08-25] MEDS: ENOXAPARIN NA (PORCINE) 40 MG/0.4 ML DISP.SYRIN SQ SCH (09:50)
[2023-08-25] MEDS: SIMETHICONE 80 MG TAB.CHEW (FP) PO SCH ×4 (09:50→21:09)
[2023-08-25] MEDS: FOLIC ACID 1 MG TABLET (FP) PO SCH (09:51)
[2023-08-25] MEDS: DRONABINOL 5 MG CAPSULE PO SCH (09:51)
[2023-08-25] MEDS: THIAMINE HCL 100 MG TABLET (FP) PO SCH (09:51)
[2023-08-25] MEDS ORDERED: POTASSIUM CHLORIDE ORAL LIQUID 20 MEQ/15 ML PO ONE (15:58)
[2023-08-25] MEDS: KCL 10 MEQ IVPB 10 MEQ/100 ML INFUS.BAG IVPB SCH ×3 (18:33→21:09)
[2023-08-26] MEDS: DEXAMETHASONE SOD PHOSPHATE 10 MG/1 ML VIAL IVPUSH SCH ×2 (03:14→09:16)
[2023-08-26] MEDS: AMINO ACIDS 4.25%/D5W 1,000 ML IV SCH ×2 (05:58→16:30)
[2023-08-26] MEDS: levETIRAcetam 500 MG/5 ML INJECTION VIAL IVPB SCH ×2 (10:11→23:00)
[2023-08-26] MEDS: PANTOPRAZOLE 40 MG TABLET PO SCH (10:18)
[2023-08-26] MEDS: DRONABINOL 5 MG CAPSULE PO SCH ×2 (10:18→11:37)
[2023-08-26] MEDS: THIAMINE HCL 100 MG TABLET (FP) PO SCH (10:20)
[2023-08-26] MEDS: ENOXAPARIN NA (PORCINE) 40 MG/0.4 ML DISP.SYRIN SQ SCH (10:20)
[2023-08-26] MEDS: FOLIC ACID 1 MG TABLET (FP) PO SCH (10:20)
[2023-08-26] MEDS: SIMETHICONE 80 MG TAB.CHEW (FP) PO SCH ×5 (10:20→23:07)
[2023-08-26] MEDS: traMADol HCL 50 MG TABLET PO PRN (12:25)
[2023-08-26] MEDS: DEXAMETHASONE 4 MG TABLET (FP) PO SCH ×3 (13:35→23:00)
[2023-08-27] MEDS: AMINO ACIDS 4.25%/D5W 1,000 ML IV SCH (04:58)
[2023-08-27] MEDS ORDERED: ACETAMINOPHEN 1000 MG/100 ML BAG IVPB PRN (06:36)
[2023-08-27 08:57] LABS: HEMATOCRIT 36.8 % (35.4-49); HEMOGLOBIN 13.3 GM/dL (11.7-16.9); MCH 32.5 pg (25.7-33.7); MCHC 36.2 g/dl (32.0-35.9); MEAN CELL VOLUME 89.7 fl (80-96); MEAN PLT VOLUME 7.5 fl (7.5-11.1); PLATELET COUNT 250 10^3/uL (134-434)
[2023-08-27 09:20] LABS: ALBUMIN 2.7 g/dl (3.4-5.0); BLOOD UREA NITROGEN 27.7 mg/dL (7-18); CALCIUM 8.6 mg/dL (8.5-10.1); POTASSIUM 3.3 mmol/L (3.5-5.1)
[2023-08-27 09:23] LABS: CREATININE 0.3 mg/dL (0.55-1.3)
[2023-08-27 09:25] LABS: TOT PROT 5.5 g/dl (6.4-8.2)
[2023-08-27] MEDS: levETIRAcetam 500 MG/5 ML INJECTION VIAL IVPB SCH ×2 (09:58→21:28)
[2023-08-27] MEDS: DEXAMETHASONE 4 MG TABLET (FP) PO SCH ×4 (10:06→21:29)
[2023-08-27] MEDS: SIMETHICONE 80 MG TAB.CHEW (FP) PO SCH ×4 (10:06→21:29)
[2023-08-27] MEDS: PANTOPRAZOLE 40 MG TABLET PO SCH (10:06)
[2023-08-27] MEDS: FOLIC ACID 1 MG TABLET (FP) PO SCH (10:06)
[2023-08-27] MEDS: THIAMINE HCL 100 MG TABLET (FP) PO SCH (10:06)
[2023-08-27] MEDS: ENOXAPARIN NA (PORCINE) 40 MG/0.4 ML DISP.SYRIN SQ SCH (10:11)
[2023-08-27] MEDS: DRONABINOL 5 MG CAPSULE PO SCH (11:13)
[2023-08-27] MEDS ORDERED: POTASSIUM CHLORIDE ORAL LIQUID 20 MEQ/15 ML PO ONE (12:49)
[2023-08-27] MEDS: KCL 10 MEQ IVPB 10 MEQ/100 ML INFUS.BAG IVPB SCH ×3 (14:09→16:28)
[2023-08-27] MEDS: POTASSIUM CHLORIDE 20 MEQ in AMINO ACIDS 4.25%/D5W 1,000 ML IV SCH (14:35)
[2023-08-28] MEDS ORDERED: ACETAMINOPHEN 650 MG/20.3 ML ORAL SOLUTION (CUPS) PO PRN (06:25)
[2023-08-28 10:06] LABS: POTASSIUM 3.6 mmol/L (3.5-5.1)
[2023-08-28] MEDS: POTASSIUM CHLORIDE 20 MEQ in AMINO ACIDS 4.25%/D5W 1,000 ML IV SCH ×2 (10:14→13:32)
[2023-08-28 10:23] LABS: CALCIUM 8.9 mg/dL (8.5-10.1)
[2023-08-28] MEDS: FOLIC ACID 1 MG TABLET (FP) PO SCH (10:23)
[2023-08-28] MEDS: levETIRAcetam 500 MG/5 ML ORAL SOLUTION (UNIT-DOSE CUPS) PO SCH ×2 (10:23→21:16)
[2023-08-28] MEDS: SIMETHICONE 80 MG TAB.CHEW (FP) PO SCH ×4 (10:23→21:17)
[2023-08-28] MEDS: PANTOPRAZOLE 40 MG TABLET PO SCH (10:23)
[2023-08-28] MEDS: DEXAMETHASONE 4 MG TABLET (FP) PO SCH ×4 (10:24→21:16)
[2023-08-28] MEDS: THIAMINE HCL 100 MG TABLET (FP) PO SCH (10:24)
[2023-08-28] MEDS: ENOXAPARIN NA (PORCINE) 40 MG/0.4 ML DISP.SYRIN SQ SCH (10:24)
[2023-08-28 10:26] LABS: MAGNESIUM 1.6 mg/dL (1.8-2.4)
[2023-08-28 10:28] LABS: ALBUMIN 2.8 g/dl (3.4-5.0)
[2023-08-28 10:31] LABS: CREATININE 0.3 mg/dL (0.55-1.3)
[2023-08-28 10:32] LABS: BILIRUBIN,TOTAL 1.5 mg/dL (0.2-1); TOT PROT 5.7 g/dl (6.4-8.2)
[2023-08-28] MEDS ORDERED: FLU VACCINE (FLULAVAL) PF 60 MCG/0.5 ML SYRINGE 2023-2024 IM ONE (11:30)
[2023-08-28] MEDS: DRONABINOL 5 MG CAPSULE PO SCH (11:39)
[2023-08-28] MEDS ORDERED: MAGNESIUM 2GM/50ML STERILE WATER IVPB IVPB ONE (12:32)
[2023-08-28] MEDS ORDERED: SODIUM CHLORIDE 500 ML IV STA (12:32)
[2023-08-29] MEDS: POTASSIUM CHLORIDE 20 MEQ in AMINO ACIDS 4.25%/D5W 1,000 ML IV SCH ×2 (06:15→13:26)
[2023-08-29] MEDS: levETIRAcetam 500 MG/5 ML ORAL SOLUTION (UNIT-DOSE CUPS) PO SCH ×2 (10:38→21:18)
[2023-08-29] MEDS: ENOXAPARIN NA (PORCINE) 40 MG/0.4 ML DISP.SYRIN SQ SCH (10:38)
[2023-08-29] MEDS: DEXAMETHASONE 4 MG TABLET (FP) PO SCH ×4 (10:38→21:18)
[2023-08-29] MEDS: SIMETHICONE 80 MG TAB.CHEW (FP) PO SCH ×4 (10:38→21:18)
[2023-08-29] MEDS: THIAMINE HCL 100 MG TABLET (FP) PO SCH (10:39)
[2023-08-29] MEDS: DRONABINOL 5 MG CAPSULE PO SCH (10:39)
[2023-08-29] MEDS: FOLIC ACID 1 MG TABLET (FP) PO SCH (10:39)
[2023-08-29] MEDS: PANTOPRAZOLE 40 MG TABLET PO SCH (10:39)
[2023-08-30] MEDS: POTASSIUM CHLORIDE 20 MEQ in AMINO ACIDS 4.25%/D5W 1,000 ML IV SCH ×4 (03:17→13:37)
[2023-08-30 10:09] LABS: POTASSIUM 3.3 mmol/L (3.5-5.1)
[2023-08-30 10:10] LABS: CALCIUM 8.9 mg/dL (8.5-10.1)
[2023-08-30 10:11] LABS: ALBUMIN 2.9 g/dl (3.4-5.0)
[2023-08-30 10:12] LABS: BLOOD UREA NITROGEN 24.6 mg/dL (7-18)
[2023-08-30 10:16] LABS: TOT PROT 5.7 g/dl (6.4-8.2)
[2023-08-30 10:25] LABS: BILIRUBIN,TOTAL 1.1 mg/dL (0.2-1); CREATININE 0.2 mg/dL (0.55-1.3)
[2023-08-30] MEDS: levETIRAcetam 500 MG/5 ML ORAL SOLUTION (UNIT-DOSE CUPS) PO SCH ×2 (10:26→21:52)
[2023-08-30] MEDS: ENOXAPARIN NA (PORCINE) 40 MG/0.4 ML DISP.SYRIN SQ SCH (10:26)
[2023-08-30] MEDS: DEXAMETHASONE 4 MG TABLET (FP) PO SCH ×4 (10:26→21:53)
[2023-08-30] MEDS: PANTOPRAZOLE 40 MG TABLET PO SCH (10:27)
[2023-08-30] MEDS: SIMETHICONE 80 MG TAB.CHEW (FP) PO SCH ×4 (10:28→21:52)
[2023-08-30] MEDS: FOLIC ACID 1 MG TABLET (FP) PO SCH (10:28)
[2023-08-30] MEDS: THIAMINE HCL 100 MG TABLET (FP) PO SCH (10:28)
[2023-08-30] MEDS ORDERED: POTASSIUM CHLORIDE ORAL LIQUID 20 MEQ/15 ML PO ONE (10:47)
[2023-08-30] MEDS: DRONABINOL 5 MG CAPSULE PO SCH (11:05)
[2023-08-31] MEDS: POTASSIUM CHLORIDE 20 MEQ in AMINO ACIDS 4.25%/D5W 1,000 ML IV SCH (04:16)
[2023-08-31] MEDS: DEXAMETHASONE 4 MG TABLET (FP) PO SCH ×4 (11:09→21:34)
[2023-08-31] MEDS: levETIRAcetam 500 MG/5 ML ORAL SOLUTION (UNIT-DOSE CUPS) PO SCH ×2 (11:09→21:30)
[2023-08-31] MEDS: ENOXAPARIN NA (PORCINE) 40 MG/0.4 ML DISP.SYRIN SQ SCH (11:10)
[2023-08-31] MEDS: THIAMINE HCL 100 MG TABLET (FP) PO SCH (11:10)
[2023-08-31] MEDS: FOLIC ACID 1 MG TABLET (FP) PO SCH (11:11)
[2023-08-31] MEDS: DRONABINOL 5 MG CAPSULE PO SCH (11:11)
[2023-08-31] MEDS: SIMETHICONE 80 MG TAB.CHEW (FP) PO SCH ×4 (11:11→21:35)
[2023-08-31] MEDS: PANTOPRAZOLE 40 MG TABLET PO SCH (11:11)
[2023-08-31] MEDS ORDERED: FOSPHENYTOIN SODIUM 100 MG/2 ML VIAL IVPUSH ONE (12:11)
[2023-08-31] MEDS ORDERED: VALPROATE SODIUM 500 MG/5 ML VIAL IVPB ONE (12:21)
[2023-08-31] MEDS ORDERED: VALPROATE SODIUM INJECTION 1,000 MG in DEXTROSE 5%-WATER - 100 ML IVPB ONE (13:00)
[2023-08-31 14:25] LABS: EPI CELLS 10 /uL (0-25.1); HYALINE CASTS 7 /uL (0-3.1); PH,URINE >= 9.0 (5.0-8.0); URINE APPEARANCE TURBID; URINE BACTERIA >9,000 /uL (0-1359); URINE BILIRUBIN NEGATIVE (NEGATIVE); URINE COLOR YELLOW; URINE GLUCOSE (UA) TRACE (NEGATIVE); URINE KETONE NEGATIVE (NEGATIVE); URINE LEUK ESTERASE 3+ (NEGATIVE); URINE NITRITE POSITIVE (NEGATIVE); URINE PROTEIN 3+ (NEGATIVE); URINE RBC 3 /uL (0-23.9); URINE WBC 1208 /uL (0-25.8)
[2023-08-31 14:34] LABS: YEAST NO SEEN (NEGATIVE)
[2023-08-31] MEDS ORDERED: VALPROATE SODIUM 500 MG/5 ML VIAL IVPB SCH (22:00)
[2023-08-31] MEDS: VALPROATE SODIUM INJECTION 500 MG in DEXTROSE 5%-WATER - 100 ML IVPB SCH (22:11)
[2023-09-01] MEDS: POTASSIUM CHLORIDE 20 MEQ in AMINO ACIDS 4.25%/D5W 1,000 ML IV SCH ×2 (02:20→03:13)
[2023-09-01] MEDS ORDERED: CEFTRIAXONE 1 GM in DEXTROSE 5%-WATER - 50 ML IVPB SCH (04:51)
[2023-09-01 07:11] LABS: ARTERIAL BLD GAS O2 SATURATION 99.1 % (95-98); ARTERIAL BLOOD GAS BASE EXCESS 2.4 mmol/L (-2-2); ARTERIAL BLOOD GAS PO2 139.7 mmHg (80-100); ARTERIAL BLOOD GAS pH 7.534 (7.350-7.450)
[2023-09-01 07:24] LABS: ALLENS TEST POSITIVE
[2023-09-01] MEDS: ENOXAPARIN NA (PORCINE) 40 MG/0.4 ML DISP.SYRIN SQ SCH (09:54)
[2023-09-01] MEDS: THIAMINE HCL 100 MG TABLET (FP) PO SCH (09:55)
[2023-09-01] MEDS: SIMETHICONE 80 MG TAB.CHEW (FP) PO SCH ×4 (09:55→21:59)
[2023-09-01] MEDS: DEXAMETHASONE 4 MG TABLET (FP) PO SCH ×4 (09:55→21:42)
[2023-09-01] MEDS: PANTOPRAZOLE 40 MG TABLET PO SCH (09:57)
[2023-09-01] MEDS: FOLIC ACID 1 MG TABLET (FP) PO SCH (09:57)
[2023-09-01] MEDS: levETIRAcetam 500 MG/5 ML ORAL SOLUTION (UNIT-DOSE CUPS) PO SCH ×2 (09:57→21:42)
[2023-09-01 10:07] LABS: HEMATOCRIT 38.7 % (35.4-49); HEMOGLOBIN 13.6 GM/dL (11.7-16.9); MCH 32.1 pg (25.7-33.7); MCHC 35.1 g/dl (32.0-35.9); MEAN CELL VOLUME 91.3 fl (80-96); MEAN PLT VOLUME 7.1 fl (7.5-11.1); PLATELET COUNT 232 10^3/uL (134-434); POTASSIUM 3.8 mmol/L (3.5-5.1); RBC 4.23 M/mm3 (4.00-5.60); RDW 14.8 % (11.9-15.9); WHITE BLOOD COUNT 28.3 K/mm3 (4.0-10.0)
[2023-09-01 10:10] LABS: CALCIUM 9.1 mg/dL (8.5-10.1)
[2023-09-01 10:11] LABS: ALBUMIN 2.8 g/dl (3.4-5.0); MAGNESIUM 1.7 mg/dL (1.8-2.4)
[2023-09-01 10:14] LABS: CREATININE 0.5 mg/dL (0.55-1.3)
[2023-09-01 10:16] LABS: TOT PROT 5.9 g/dl (6.4-8.2)
[2023-09-01] MEDS: VALPROATE SODIUM INJECTION 500 MG in DEXTROSE 5%-WATER - 100 ML IVPB SCH ×2 (12:07→21:42)
[2023-09-01] MEDS: DRONABINOL 5 MG CAPSULE PO SCH (12:08)
[2023-09-01] MEDS ORDERED: MAGNESIUM 2GM/50ML STERILE WATER IVPB IVPB ONE (12:30)
[2023-09-01 12:52] LABS: ANISOCYTOSIS 0; HELMET CELLS 0; HOWELL-JOLLY BODIES 0; MACROCYTOSIS 0; OVALOCYTE 0; ROULEAU 0; SICKELED CELLS 0; TARGET CELLS 0; TEAR DROP CELLS 0; TOXIC GRANULATION 0
[2023-09-01] MEDS: ALBUTEROL SO4 2.5/IPRATROPIUM 0.5 INH SOL 3 ML VIAL.NEB. NEB SCH (20:33)
[2023-09-02 01:48] VITALS: RESP 22
[2023-09-02] MEDS: POTASSIUM CHLORIDE 20 MEQ in AMINO ACIDS 4.25%/D5W 1,000 ML IV SCH ×2 (02:00→04:43)
[2023-09-02] MEDS ORDERED: ACETAMINOPHEN 1000 MG/100 ML BAG IVPB PRN (04:04)
[2023-09-02] MEDS ORDERED: SODIUM CHLORIDE 250 ML IV STA (06:55)
[2023-09-02] MEDS ORDERED: LEVALBUTEROL HCL 0.63 MG/3 ML VIAL.NEB. IH ONE (06:55)
[2023-09-02] MEDS: ALBUTEROL SO4 2.5/IPRATROPIUM 0.5 INH SOL 3 ML VIAL.NEB. NEB SCH (08:00)
[2023-09-02 08:54] VITALS: PULSE 145
[2023-09-02] MEDS ORDERED: MORPHINE SULFATE/0.9% NACL/PF 100 MG/100 ML BAG IVPB SCH (09:30)
[2023-09-02] MEDS ORDERED: levETIRAcetam 500 MG/5 ML INJECTION VIAL IVPB SCH (10:00)
[2023-09-02] MEDS: SIMETHICONE 80 MG TAB.CHEW (FP) PO SCH (10:06)
[2023-09-02] MEDS: VALPROATE SODIUM INJECTION 500 MG in DEXTROSE 5%-WATER - 100 ML IVPB SCH (10:06)
[2023-09-02] MEDS ORDERED: morphine SULFATE 4 MG/ML VIAL IM PRN (12:14)
[2023-09-02] MEDS ORDERED: morphine SULFATE 4 MG/ML VIAL SQ ONE (13:00)
[2023-09-02] MEDS ORDERED: morphine SULFATE 4 MG/ML VIAL IVPUSH PRN (13:17)
[2023-09-02] MEDS ORDERED: morphine SULFATE 4 MG/ML VIAL IVPUSH ONE (13:18)
[2023-09-02 13:29] VITALS: BP 77/62; TEMP 100.7
[2023-09-02] MEDS ORDERED: DEXAMETHASONE SOD PHOSPHATE 10 MG/1 ML VIAL IVPUSH SCH (15:00)
== END 2023-09-02 15:50 | disposition expired | DRG 41 ==
LOC: JER 14:12 → JERBED 17:27 → JICU 20:15 → J5S 08-14 18:28 → JICU 08-15 08:31 → J6S 08-20 14:54
PROVIDERS: ADMIT Internal Medicine; ATTEND Family Medicine
DX: C79.31 Secondary malignant neoplasm of brain (principal); G91.1 Obstructive hydrocephalus; G93.6 Cerebral edema; C34.90 Malignant neoplasm of unspecified part of unspecified bronchus or lung; J44.9 Chronic obstructive pulmonary disease, unspecified; K92.0 Hematemesis; R64 Cachexia; E87.1 Hypo-osmolality and hyponatremia; F17.210 Nicotine dependence, cigarettes, uncomplicated; Z68.1 Body mass index [BMI] 19.9 or less, adult; E87.6 Hypokalemia
CPT/HCPCS: 0241U-QW; 36415; 36600; 70450-TC; 71045-TC-FY; 74018-TC-FY; 80048; 80053; 81003; 82310; 82436; 82550; 82553; 82570; 82803; 82962; 83036; 83605; 83735; 83930; 83935; 84100; 84133; 84300; 84443; 84484; 85025; 85027; 85610; 85730; 86850; 86900; 86901; 87086; 87186; 87635; 90686; 93005; 93010; 94640; 97116-GP; 97161-GP; 99285-25; G0008; J1100